=== PATIENT | female | born 1985 | race Caucasian/White ===

== ENCOUNTER 2016-08-13 21:23 | Emergency (ER) | payer OTHER ==
[2016-08-13 22:02] VITALS: BP 129/89; PULSE 18; RESP 16; TEMP 99.3; O2SAT 94
[2016-08-13] MEDS ORDERED: IBUPROFEN 200 MG TAB PO ONE (22:02)
[2016-08-13] MEDS ORDERED: IBUPROFEN 600 MG TAB PO ONE (22:04)
[2016-08-13] MEDS ORDERED: ONDANSETRON DISINTEGRATING 4 MG TAB ONE (22:07)
[2016-08-13] MEDS ORDERED: ONDANSETRON DISINTEGRATING 4 MG TAB PO ONE (22:07)
[2016-08-13] MEDS ORDERED: OSELTAMIVIR PHOSPHATE 75 MG CAP PO ONE (22:17)
[2016-08-13] MEDS ORDERED: ONDANSETRON 4MG PREPACK#2 BTL TAKEHOME ONE (22:29)
--- NOTE | 2016-08-13 22:32 | UCPHY ---
H & P Time Seen by Provider: 08/13/16 21:53 Patient Type: New HPI/ROS: This patient reports fevers associated with myalgias, nasal congestion, mild sore throat. She also reports vomiting and a mild dry cough. She vomited 3 times prior to arrival. She also reports mild fatigue. Her boyfriend with whom she lives has had similar symptoms over the past 4-5 days. ROS: No other constitutional symptoms. HEENT: No ear pain. No sinus pain. Pulmonary: No pleuritic pain or dyspnea. GI: No abdominal pain : No symptoms. Last menstrual. Normal timing 7 point ROS is otherwise negative Past Medical/Surgical History: Otherwise healthy Smoking Status: Never smoked Physical Exam: Physical Exam Vital signs are normal with exception of a low-grade fever and an O2 sat of 94% on room air General: No acute distress HEENT: Nose: Clear discharge bilaterally. No sinus tenderness to percussion. Ears: External canals and tympanic membranes are clear with no erythema or abnormal findings bilaterally. Oropharynx: No erythema or exudates. No dysphonia. No drooling or stridor. Eyes: Pupils equal and react to light. Extraocular motions are intact. Lungs: Clear to auscultation bilaterally with no rales, rhonchi or wheeze. No respiratory distress. Abdomen: Soft, nontender Back: No CVA tenderness Cardiac: Regular rate and rhythm with no murmur gallop or rub Skin: No rash or pallor. Neuro: Alert with no focal deficits noted. Initial differential diagnosis: Influenza, flu-like illness, viral URI, gastroenteritis Constitutional: Initial Vital Signs Temperature (C) 37.4 C 08/13/16 22:01 Heart Rate 18 L 08/13/16 22:01 Respiratory Rate 16 08/13/16 22:01 Blood Pressure 129/89 H 08/13/16 22:01 O2 Sat (%) 94 08/13/16 22:01 O2 Delivery Mode Room Air Allergies/Adverse Reactions: No Known Allergies Allergy (Unverified 08/13/16 22:00) Home Medications: Medication Instructions Recorded Norgestimate-Ethinyl Estradiol 08/13/16 [Trinessa Tablet] Ondansetron Odt [Zofran Odt] 4 - 8 mg PO Q4PRN PRN #4 tab 08/13/16 Oseltamivir Phosphate [Tamiflu 75 75 mg PO BID #10 cap 08/13/16 mg (*)] Medical Decision Making ED Course/Re-evaluation: Studies: Influenza B is positive Patient's true Zofran ODT with resolution of her nausea and ibuprofen with improvement in her fevers and aches. I counseled her regarding influenza. - Data Points Laboratory Results: 08/13/16 21:50 Influenza Typ A,B (DFA) POSITIVE FOR FLU B H (NEGATIVE) Medications Given: Discontinued Medications Ibuprofen (Motrin) 600 mg PO EDNOW ONE Stop: 08/13/16 22:03 Last Admin: 08/13/16 22:33 Dose: 600 mg Ondansetron HCl (Zofran Odt) 8 mg PO EDNOW ONE Stop: 08/13/16 22:08 Last Admin: 08/13/16 22:10 Dose: 8 mg Departure - Departure Disposition: Home, Routine, Self-Care Clinical Impression: Influenza B Condition: Good Instructions: Influenza (ED), Acute Nausea and Vomiting (ED) Additional Instructions: Diagnosis: 1. Influenza B 2. Vomiting Plan: Drink plenty fluids Light diet Tamiflu as prescribed Zofran for nausea if needed Ibuprofen for aches and fevers. No work until her fever has resolved for 24 hours more. Go to the emergency department for any significant worsening despite the treatment plan Referrals: NONE *PRIMARY CARE P,. [Primary Care Provider] - As per Instructions Stand Alone Forms: Work Excuse Prescriptions: Ondansetron Odt [Zofran Odt] 4 - 8 mg PO Q4PRN PRN #4 tab PRN Reason: Vomiting Oseltamivir Phosphate [Tamiflu 75 mg (*)] 75 mg PO BID #10 cap - PQRS PQRS Measurement: NA
== END 2016-08-13 22:58 | disposition home or self-care (01) ==
LOC: CED 21:23
DX: J10.1 Influenza due to other identified influenza virus with other respiratory manifestations (principal); R11.10 Vomiting, unspecified
CPT/HCPCS: 87400-PO; 99203-PO; G0463-PO